=== PATIENT | female | born 1995 | race Caucasian/White ===

== ENCOUNTER 2017-09-06 14:12 | Emergency (ER) | payer OTHER ==
[~2017-09-06] VITALS: Ht 160 cm; Wt 60.7 kg
[~2017-09-06 14:12] MED LIST: FEXO1TAB49 PO
[2017-09-06 14:16] VITALS: TEMP 36.6; Ht 160 cm; Wt 60.7 kg
--- NOTE | 2017-09-06 14:34 | EMERGENCY ROOM VISIT NOTE ---
History Report prepared by Lisa: Camila Paul Under the Supervision of: Dr. Kostas Oden M.D. 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 The patient reports she was flu positive August 18, 2017 and it was "really bad. her white blood cell count on this date was 2.8. She notes she has had a cough and chills but is unsure if she had a fever because she does not own a thermometer. She was put on Tamiflu by [facility]. As per nursing staff, she was flu + 1 week ago. Her first white blood cell count came back 0, then they repeated it and it was 0.6. Today, her white blood cell count was 1.8. 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 A total of 10 systems reviewed and were otherwise negative. Family History Patient reports no known family medical history. Social History Smoking Status: Never Smoker Smokeless Tobacco Use: Unknown Housing Status: lives with roommate Occupation Status: [employer] student Current/Historical Medications Scheduled Loratadine (Claritin), 10 MG PO DAILY Allergies Coded Allergies: Doxycycline (Verified Adverse Reaction, Unknown, GI SYMPTOMS, 09/06/17) Physical Exam Vital Signs Date Time Temp Pulse Resp B/P (MAP) Pulse Ox O2 Delivery O2 Flow Rate FiO2 09/06/17 17:15 78 18 127/76 99 09/06/17 15:30 79 18 120/82 97 Room Air 09/06/17 15:16 95 09/06/17 15:05 97 Room Air 09/06/17 14:16 36.6 93 17 114/78 97 Room Air Physical Exam GENERAL: Patient is a healthy-appearing well-nourished female. No encephalitis or meningitis upon exam. HEAD: Normocephalic atraumatic EYES: Ocular movements intact pupils equal and react to light OROPHARYNX mucous membranes are moist no exudates present no erythema or edema present NECK: Supple no nuchal rigidity CHEST: Good equal expansion LUNGS: Clear and equal to auscultation CARDIAC: Normal S1 and S2 ABDOMEN: Soft nontender no guarding BACK: No CVA tenderness EXTREMITIES: No pain upon palpation normal muscle strength in all groups no clubbing cyanosis or edema NEURO: Patient is following commands and answering questions appropriately. Alert and oriented x3 Cranial Nerves 2-12 grossly intact Medical Decision & Procedures ER Provider Diagnostic Interpretation: Radiology results as stated below per my review and radiologist interpretation: CHEST ONE VIEW PORTABLE CLINICAL HISTORY: 22 years-old Female presenting with Pt c/o WBC. TECHNIQUE: Portable upright AP view of the chest was obtained. COMPARISON: 08/14/2015. FINDINGS: Cardiomediastinal silhouette normal. Lungs and pleural spaces clear. Osseous structures normal. Upper abdomen normal. IMPRESSION: 1. No acute cardiopulmonary disease. Electronically signed by: Reuben Armijo M.D. 09/06/2017 2:46 PM Dictated Date/Time: 09/06/2017 2:46 PM Laboratory Results 09/06/17 14:50 Red Blood Count 4.94, Mean Corpuscular Volume 86.4, Mean Corpuscular Hemoglobin 28.5, Mean Corpuscular Hemoglobin Concent 33.0, Mean Platelet Volume 11.5 09/06/17 14:50 Test 09/06/17 14:50 White Blood Count 2.00 K/uL (4.8-10.8) Red Blood Count 4.94 M/uL (4.2-5.4) Hemoglobin 14.1 g/dL (12.0-16.0) Hematocrit 42.7 % (37-47) Mean Corpuscular Volume 86.4 fL (80-100) Mean Corpuscular Hemoglobin 28.5 pg (25-34) Mean Corpuscular Hemoglobin Concent 33.0 g/dl (32-36) Platelet Count 185 K/uL (130-400) Mean Platelet Volume 11.5 fL (7.4-10.4) RDW Standard Deviation 42.3 fL (36.4-46.3) RDW Coefficient of Variation 13.3 % (11.5-14.5) Neutrophils % (Manual) 39.4 % Lymphocytes % (Manual) 26.6 % Variant Lymphocytes % (manual) 10.1 % Monocytes % (Manual) 23.9 % Neutrophils # (Manual) 0.79 K/uL (1.4-6.5) Total Absolute Neutrophils 0.79 K/uL (1.4-6.5) Lymphocytes # (Manual) 0.53 K/uL (1.2-3.4) Absolute Variant Lymphocytes 0.20 K/uL Total Absolute Lymphocytes 0.73 K/uL (1.2-3.4) Monocytes # (Manual) 0.48 K/uL (0.11-0.59) Large Platelets 1+ Anion Gap 8.0 mmol/L (3-11) Est Creatinine Clear Calc Drug Dose 95.6 ml/min Estimated GFR () 127.9 Estimated GFR (Non- 110.4 BUN/Creatinine Ratio 13.3 (10-20) Calcium Level 8.8 mg/dl (8.5-10.1) Total Bilirubin 0.5 mg/dl (0.2-1) Direct Bilirubin < 0.1 mg/dl (0-0.2) Aspartate Amino Transf (AST/SGOT) 9 U/L (15-37) Alanine Aminotransferase (ALT/SGPT) 12 U/L (12-78) Alkaline Phosphatase 66 U/L (45-117) Total Protein 7.4 gm/dl (6.4-8.2) Albumin 3.8 gm/dl (3.4-5.0) Monoscreen NEG (NEG) Labs reviewed by ED physician. ED Course 1422: Past medical records reviewed. The patient was evaluated in room B6. A complete history and physical examination was performed. 1446: I discussed the patient's case with Dr. Ness, [facility], He and I discussed the results of the patient's labs. He agreed with the treatment plan. 1623: Upon reexamination the patient is agreeable. I discussed results and treatment plan with the patient. I spoke with the patient's father at this time as well via phone call. She verbalizes agreement and understanding. The patient is ready for discharge. Medical Decision Differential diagnosis: Etiologies such as viral syndrome, otitis, pharyngitis, pneumonia, influenza, meningitis, urinary tract infection, sepsis, bacteremia, as well as others were entertained. This is a 22-year-old female who presents emergency department after being sent over by [facility] for a decreased white blood cell count. The patient is well in appearance and does not have any fevers. I did discuss the case with both the steel tier as well as the pathologist on-call who asked for peripheral smear. I discussed my findings with both the patient as well as her father. I do believe that the patient as well as to be discharged home however I stressed the need to return to the emergency department if she begins running fevers. I suspect that her leukopenia is a reaction to her influenza diagnosis. Patient and parents were in agreement with the treatment plan. She is going to follow-up with Dr. Ness this week. Medication Reconcilliation Current Medication List: was personally reviewed by me Blood Pressure Screening Patient's blood pressure: Normal blood pressure Blood pressure disposition: Did not require urgent referral Consults Time Called: 1443 Consulting Physician: Dr. Ness, [facility] Returned Call: [phone] I discussed the patient's lab results with him. Impression Primary Impression: Leukopenia Scribe Attestation The scribe's documentation has been prepared under my direction and personally reviewed by me in its entirety. I confirm that the note above accurately reflects all work, treatment, procedures, and medical decision making performed by me. Departure Information Dispostion Home / Self-Care Referrals [facility] (PCP) Forms HOME CARE DOCUMENTATION FORM, IMPORTANT VISIT INFORMATION, WORK / SCHOOL INSTRUCTIONS Patient Instructions My [facility] Additional Instructions Follow up with Dr Ness's office Return for any fevers or weakness Culture results are usually available in approx 48 hours You have been examined and treated today on an emergency basis only. This is not a substitute for, or an effort to provide, complete comprehensive medical care. It is impossible to recognize and treat all injuries or illnesses in a single emergency department visit. It is therefore important that you follow up closely with [facility]. Call as soon as possible for an appointment. Thank you for your time and consideration. I look forward to speaking with you again soon. Please don't hesitate to call us if you have any questions. Problem Qualifiers Primary Impression: Leukopenia Leukopenia type: unspecified Qualified Codes: D72.819 - Decreased white blood cell count, unspecified
--- NOTE | 2017-09-06 14:47 | DIAGNOSTIC IMAGING REPORT ---
CHEST ONE VIEW PORTABLE CLINICAL HISTORY: 22 years-old Female presenting with Pt c/o WBC. TECHNIQUE: Portable upright AP view of the chest was obtained. COMPARISON: 08/14/2015. FINDINGS: Cardiomediastinal silhouette normal. Lungs and pleural spaces clear. Osseous structures normal. Upper abdomen normal. IMPRESSION: 1. No acute cardiopulmonary disease. Electronically signed by: Reuben Armijo M.D. 09/06/2017 2:46 PM Dictated Date/Time: 09/06/2017 2:46 PM
[2017-09-06] MEDS ORDERED: CLR10 PO (15:01)
[2017-09-06 15:05] VITALS: O2SAT 97
[2017-09-06 15:18] LABS: ALBUMIN 3.8 gm/dl (3.4-5.0); ALT/SGPT 12 U/L (12-78); BLOOD UREA NITROGEN 10 mg/dl (7-18); CALCIUM 8.8 mg/dl (8.5-10.1); CARBON DIOXIDE 25 mmol/L (21-32); CREATININE 0.77 mg/dl (0.60-1.20); GLUCOSE 74 mg/dl (70-99); POTASSIUM 3.7 mmol/L (3.5-5.1); SODIUM 140 mmol/L (136-145)
[2017-09-06 15:21] LABS: ALKALINE PHOSPHATASE 66 U/L (45-117); AST/SGOT 9 U/L (15-37); TOTAL PROTEIN 7.4 gm/dl (6.4-8.2)
[2017-09-06 15:54] LABS: HEMATOCRIT 42.7 % (37-47); HEMOGLOBIN 14.1 g/dL (12.0-16.0); MEAN CELL VOLUME 86.4 fL (80-100); MEAN CORPUSCULAR HEMOGLOBIN 28.5 pg (25-34); MEAN PLATELET VOLUME 11.5 fL (7.4-10.4); PLATELET COUNT 185 K/uL (130-400); RED CELL DISTRIBUTION WIDTH CV 13.3 % (11.5-14.5); RED CELL DISTRIBUTION WIDTH SD 42.3 fL (36.4-46.3)
[2017-09-06 17:15] VITALS: BP 127/76; PULSE 78; O2SAT 99
[2017-09-09 13:38] LABS: EBV EARLY ANTIGEN AB < 9.00 U/ML
== END 2017-09-06 17:18 | disposition home or self-care (01) ==
LOC: C.EDB 14:16
DX: D72.819 Decreased white blood cell count, unspecified (principal); Z79.899 Other long term (current) drug therapy